=== PATIENT | male | born 1985 | race Caucasian/White ===

== ENCOUNTER 2018-06-27 07:31 | Emergency (ER) | payer BC ==
[~2018-06-27] VITALS: Ht 190.5 cm; Wt 83.2 kg
[2018-06-27 08:01] LABS: HEMATOCRIT 44.9 % (42.0-52.0); HEMOGLOBIN 15.8 g/dL (13.5-18.0); MEAN CELL VOLUME 90 fl (78-100); MEAN CORPUSCULAR HEMOGLOBIN 32 pg (27-31); MEAN CORPUSCULAR HGB CONC 35 g/dL (33-37); MEAN PLATELET VOLUME 9.8 fl (7.4-10.4); PLATELET COUNT 268 K/mm3 (130-400); RED CELL DISTRIBUTION WIDTH 12.7 % (11.5-14.5); WHITE BLOOD COUNT 19.5 K/mm3 (4.8-10.8)
[2018-06-27 08:08] LABS: LYMPHOCYTE 7 % (20-51); MONOCYTE 12 % (3-10); NEUTROPHILS 81 % (42-75)
[2018-06-27 08:18] LABS: CALCIUM 10.1 mg/dL (8.4-10.2); POTASSIUM 4.2 mmol/L (3.6-5.0); TOTAL BILIRUBIN 0.9 mg/dL (0.2-1.3); TOTAL PROTEIN 8.3 g/dL (6.3-8.2)
[2018-06-27 09:37] VITALS: BP 131/83
== END 2018-06-27 09:38 | disposition short-term general hospital (02) ==
LOC: ED 07:31
PROVIDERS: Nurse Practitioner Primary Care
DX: K35.80 Unspecified acute appendicitis (principal)
CPT/HCPCS: J2270; J2405; Q9967